=== PATIENT | male | born 1985 | race Asian ===

== ENCOUNTER 2022-03-29 07:13 | Day surgery (SDC) | payer BC ==
[~2022-03-29] VITALS: Ht 175.3 cm; Wt 71.2 kg
[2022-03-29] MEDS ORDERED: HYDROmorphone 2 MG/ML VIAL ONE (09:50)
[2022-03-29] MEDS ORDERED: LR 1,000 ML IV.SOLN IV ONE (09:50)
[2022-03-29] MEDS ORDERED: NS IRRIG SOLN 1000 ML IR ONE (09:50)
[2022-03-29] MEDS ORDERED: BUPIVACAINE /PF 0.25% 30 ML VIAL INJ ONE (09:50)
[2022-03-29] MEDS ORDERED: SUGAMMADEX SODIUM 200 MG/2 ML VIAL IV ONE (09:50)
[2022-03-29] MEDS ORDERED: SEVOFLURANE 15 MIN GAS INH ONE (09:50)
[2022-03-29] MEDS ORDERED: MIDAZOLAM HCL 2 MG/2 ML VIAL (VERSED) ONE (09:50)
[2022-03-29] MEDS ORDERED: PROPOFOL 200MG/ 20ML VIAL (DIPRIVAN) IV ONE (09:50)
[2022-03-29] MEDS ORDERED: ONDANSETRON HCL 4 MG/2 ML VIAL ONE (09:50)
[2022-03-29] MEDS ORDERED: fentaNYL CITRATE/PF 100 MCG/2 ML AMP ONE (09:50)
[2022-03-29] MEDS ORDERED: ROCURONIUM BROMIDE 10 MG/ML (ZEMURON) ONE (09:50)
[2022-03-29] MEDS ORDERED: DEXAMETHASONE SOD PHOSPHATE 4 MG/ML VIAL ONE (09:50)
[2022-03-29] MEDS ORDERED: ceFAZolin SODIUM 2 GM VIAL ONE (09:50)
[2022-03-29] MEDS ORDERED: METOCLOPRAMIDE HCL 10 MG/2 ML VIAL ONE (09:50)
[2022-03-29] MEDS ORDERED: HYDROmorphone 2 MG/ML VIAL IVP PRN (11:00)
[2022-03-29] MEDS ORDERED: ONDANSETRON HCL 4 MG/2 ML VIAL IVP PRN (11:00)
[2022-03-29] MEDS ORDERED: HYDROmorphone 1 MG/ML INJ. CARTRIDGE IVP PRN ×2 (11:00)
[2022-03-29] MEDS ORDERED: HYDROmorphone 1 MG/ML INJ. CARTRIDGE ONE (11:35)
[2022-03-29 14:44] VITALS: BP_SYST 118
== END 2022-03-29 13:30 | disposition home or self-care (01) ==
LOC: SDS 07:13 → SMU 07:14 → SDS 13:30
PROVIDERS: ATTEND Surgery
DX: K35.33 Acute appendicitis with perforation, localized peritonitis, and gangrene, with abscess (principal); Z20.822 Contact with and (suspected) exposure to COVID-19
CPT/HCPCS: 36415; 44970; 88304; U0003; J3490 ×2; J1100; J2765; J3465; J2405; J2704; J3010; J1170 ×2; J7120